=== PATIENT | female | born 1965 | race Caucasian/White ===

== ENCOUNTER 2018-11-25 19:36 | Emergency (ER) | payer MEDICAID ==
[~2018-11-25] VITALS: Ht 172.7 cm; Wt 87.1 kg
[2018-11-25 19:40] VITALS: BP_SYST 100
--- NOTE | 2018-11-25 21:19 | NUR ---
Patient to ER bed [address] to gown for evaluation. Side rails up. Report given to GRISELDA FIGUEROA.
--- NOTE | 2018-11-25 21:20 | NUR ---
Dr. Harper bedside for pt eval
--- NOTE | 2018-11-25 21:21 | NUR ---
Pt came into ED C/O severe 9/10 pain of R upper flank. Pt states she sustained injury of L upper flank when playing in a football game earlier today. No other significant Hx or Allergies stated by pt. No other injuries and complaints noted and observed. VSS, No s/s of acute distress. Resting on gurney with rails up
--- NOTE | 2018-11-25 21:40 | NUR ---
Portable X-rays being taken at bedside. VSS, no s/s of acute distress. On gurney with rails up
--- NOTE | 2018-11-25 22:06 | NUR ---
Dr. Harper bedside to update and further eval pt
[2018-11-25] MEDS ORDERED: KETOROLAC TROMETHAMINE 60 MG/2 ML VIAL IM ONE (22:15)
[2018-11-25 22:52] VITALS: BP_SYST 102
--- NOTE | 2018-11-25 22:52 | NUR ---
Patient given written and verbal discharge instructions and verbalizes understanding. ER MD discussed with patient the results and treatment provided. Patient in stable condition. ID arm band removed. Rx of Tramadol and Motrin given. Patient educated on pain management and to follow up with PMD. Pain Scale 2/10. Opportunity for questions provided and answered. Medication side effect fact sheet provided.
== END 2018-11-25 22:52 | disposition home or self-care (01) ==
LOC: SED 19:36
DX: S20.211A Contusion of right front wall of thorax, initial encounter (principal); F17.200 Nicotine dependence, unspecified, uncomplicated; W50.0XXA Accidental hit or strike by another person, initial encounter; Y93.61 Activity, american tackle football; Y92.89 Other specified places as the place of occurrence of the external cause; Y99.8 Other external cause status
CPT/HCPCS: 71045; 71100; 96372; 99283; J1885

== ENCOUNTER 2019-01-23 12:48 | Emergency (ER) | payer MEDICAID ==
[~2019-01-23] VITALS: Ht 170.2 cm; Wt 86.2 kg
[2019-01-23 13:05] VITALS: BP_SYST 107
--- NOTE | 2019-01-23 15:20 | NUR ---
BROUGHT BACK TO BED #6 AND REPORT GIVEN TO JORGE
--- NOTE | 2019-01-23 15:40 | NUR ---
PT STATES RIGHT SIDE OF LABIA CYST, THIS IS THE 3RD TIME SHE HAS HAD THIS PROBLEM. STATES SHE WAS TOLD TO FOLLOW UP WITH [facility] TO HAVE SURGERY, PT STATES SHE DID NOT FOLLOW UP.
--- NOTE | 2019-01-23 15:45 | NUR ---
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
--- NOTE | 2019-01-23 15:46 | NUR ---
ER at bedside examining patient.
--- NOTE | 2019-01-23 16:01 | NUR ---
Patient given written and verbal discharge instructions and verbalizes understanding. ER MD discussed with patient the results and treatment provided. Patient in stable condition. ID arm band removed. Rx of BACTRIM, NAPROSYN given. Patient educated on pain management and to follow up with PMD. Pain Scale 0/10. Opportunity for questions provided and answered. Medication side effect fact sheet provided.
== END 2019-01-23 16:00 | disposition home or self-care (01) ==
LOC: SED 12:48
DX: N75.1 Abscess of Bartholin's gland (principal)
CPT/HCPCS: 99283